=== PATIENT | female | born 1990 | race Native Hawaiian/Other Pacific Islander ===

== ENCOUNTER 2018-12-30 18:28 | Inpatient (IN) | payer OTHER ==
[2018-12-30] MEDS ORDERED: Lactated Ringers 1000 ML Bag* 1,000 ML IV ONE ×2 (18:36→22:17)
[2018-12-30] MEDS ORDERED: Buffered Lidocaine 1% SYRIN* 1 ML/SYRINGE INTRADERM ONE (18:36)
--- NOTE | 2018-12-30 19:07 | HP ---
General Information - Reason for Visit early labor, ctx q 10 min, Pt denies LOF, or VB but reports + FM. - General Information Maternal Age: 28 Grav: 3 Para: 2 SAB: 0 IEA: 0 Estimated Due Date: 01/02/19 Determined By: LMP Gestational Age in Weeks/Days: 39.4 Maternal Blood Type and Rh: O Positive - Results this Serology/RPR Result: Non-Reactive Rubella Result: Immune HBsAg Result: Negative HIV Result: Negative GBS Culture Result: Negative Past Medical History Delivery History: Hx Uncomplicated Vaginal Delivery Past Medical History Comment: cholecystitis with laproscopic cholecystectomy 2014 Pertinent Past Surgical History: See Records - cholecystectomy 2014 Pertinent Family History: See Records - M: HTN; F: prostate CA; relatives: DM - Antepartal Records Antepartal Records: Reviewed, Uncomplicated Review of Systems CV Complaint: No Respiratory: Shortness of Breath: No Gastrointestinal: No Nausea/Vomiting, Normal Bowel Movement Genitourinary: No Dysuria, No Bleeding, No Leaking Fluid Musculoskeletal: Contractions Neurological: No Visual Changes, Headache Movement: Normal Exam Allergies/Adverse Reactions: Allergies No Known Allergies Allergy (Verified 12/30/18 18:52) pending - Measurements Height: 5 ft 2.2 in Weight: 179 lb Weight in lbs: [id number] Body Mass Index (BMI): 32.5 Pre- Weight: 180 lb Weight Gained This : -1 lbs and 0 ozs - Exam Breast: Breast Exam Deferred CVA: No CVA Tenderness Extremities: No Edema Heart: Normal Rhythm/Heart Sounds HEENT: No Significant Findings Lungs: Clear Bilaterally Rectal: Rectal Exam Deferred Reflexes: DTR 2+ Thyroid: No Thyromegaly - Abdominal Exam Abdomen Exam: Fundal Height Consistent with Dates - Ultrasound/Biophysical Profile Ultrasound Status: Not Done Targeted Exam Findings See L&D Outpatient Visit Provider Note for Findings: N/A Estimated Weight: 7lbs 10oz Cervical Exam: 4cm Effacement: 90% Station: -1 Presenting Part: Vertex Membrane Status: Intact Bleeding/Discharge: None EFM Findings - External Monitor Findings Baseline Heart Rate: 135 External Monitor Findings: Accelerations Present, No Pattern of Variable or Late Decelerations, Variability Moderate, Baseline Stable Contractions: Regular, Moderate, 45-90 Seconds Contraction Frequency: 1-3min Assessment/Plan - Assessment 28 y.o. active labor, Cat I NST - Plan Plan: Admit - Anticipate Vaginal Delivery - Date/Time of Admission Date of Admission: 12/30/18 Time of Admission: 19:00
[2018-12-30 21:05] LABS: Urine Benzodiazepine Screen None Detected (None Detect); Urine Opiates Screen None Detected (None Detect)
[2018-12-30] MEDS ORDERED: OBEPIDURAL* 250 ML EPIDURAL ONE (21:40)
[2018-12-30 21:41] LABS: ABS Basophils 0.1 10^3/ul (0-0.2); ABS Eosinophils 0.2 10^3/ul (0-0.6); ABS Lymphocytes 2.9 10^3/ul (1.0-4.8); ABS Monocytes 0.5 10^3/ul (0-0.8); ABS Neutrophils 7.4 10^3/ul (1.5-7.7); Eosinophil % 1.7 %; Hematocrit 40 % (35-47); Hemoglobin 13.6 g/dL (12.0-16.0); Mean Corpuscular HGB Conc 34 g/dL (31-36); Mean Corpuscular Hemoglobin 27 pg (27-31); Mean Corpuscular Volume 79 fL (80-97); Mean Platelet Volume 9.1 fL (7.4-10.4); Platelet Count 220 10^3/uL (150-450); Red Cell Distribution Width 16 % (10-15)
[2018-12-30] MEDS ORDERED: Bupivacaine 0.25% SDV PF* 10 ML VIAL INJ ONE (21:52)
--- NOTE | 2018-12-30 21:54 | PN ---
Progress Note - Progress Note Date of Service: 12/30/18 SOAP: Subjective: Pt reports increasing pain, requests epidural. Objective: BP:133/80, P:70, R:18, T:97.9, cervix: 7/100/-1, FHR: 135bmpm, + accels, -decels, moderate variability, ctxc q 2-3min Laboratory Tests 12/30/18 21:30 WBC 11.0 H Hgb 13.6 Hct 40 Plt Count 220 Assessment: 28 y.o. , 39w4d EGA, active labor, FHR Cat I Plan: 1) Anesthesia consult 2) Position changes for descent 3) Reevaluate PRN
[2018-12-30] MEDS ORDERED: Phenylephrine 40 MCG/ML SYRINGE IV PUSH PRN (22:17)
[2018-12-30] MEDS ORDERED: Famotidine TAB* 20 MG PO PRN (22:17)
[2018-12-30] MEDS ORDERED: EPHEDrine (Pressors)* 50 MG/ML VIAL IV PUSH PRN (22:17)
[2018-12-30] MEDS ORDERED: Sodium Citrate/Citric Acid* 15 ML UDC PO PRN (22:17)
[2018-12-30] MEDS: Lactated Ringers 1000 ML Bag* 1,000 ML IV SCH ×2 (22:26→23:01)
[2018-12-30] MEDS ORDERED: Lactated Ringers 1000 ML Bag* 1,000 ML IV SCH (23:00)
[2018-12-30] MEDS ORDERED: OBEPIDURAL* 250 ML EPIDURAL SCH (23:00)
[2018-12-31] MEDS ORDERED: Acetaminophen TAB* 325 MG PO PRN (00:32)
[2018-12-31] MEDS ORDERED: Dibucaine 1% 28.35 GM TUBE PR PRN (00:32)
[2018-12-31] MEDS ORDERED: Witch Hazel PAD* JAR TOPICAL PRN (00:32)
[2018-12-31] MEDS ORDERED: Glycerin ADULT SUPP PR PRN (00:32)
--- NOTE | 2018-12-31 00:38 | PROCNOTE ---
[facility] OB: Delivery Note - Delivery A Date of : 12/31/18 Time of : 00:18 Sex: Female Score 1 Minute: 8 Score 5 Minutes: 9 Gestational Age in Weeks and Days at Delivery: 39 Weeks and 5 Days Delivery Method: Spontaneous Vaginal Labor: Spontaneous Amniotic Fluid: Clear Estimated Blood Loss: 150 Anesthesia/Analgesia: CEI for Labor Delivered By: Vilma Wallace - Nursery Level of Nursery: Regular/Bedside - Perineum Perineal Injury: None/Intact Perineal Repair: None - Events Delivery Events of Note Comment: nuchal cord x 1 easily reduced on perineum
[2018-12-31] MEDS ORDERED: Lactated Ringers 1000 ML Bag* 1,000 ML IV SCH (01:00)
[2018-12-31] MEDS: Ibuprofen TAB* 600 MG PO PRN ×3 (01:08→20:30)
[2018-12-31] MEDS: Docusate CAP* 100 MG PO SCH ×3 (08:01→20:54)
[2018-12-31] MEDS ORDERED: Simethicone TAB* 80 MG TAB.CHEW PO SCH (08:30)
[2019-01-01] MEDS: Ibuprofen TAB* 600 MG PO PRN ×3 (08:19→21:00)
[2019-01-01] MEDS: Docusate CAP* 100 MG PO SCH ×3 (08:22→21:00)
[2019-01-01] MEDS ORDERED: Ferrous Gluconate TAB* 324 MG TAB PO SCH (09:00)
[2019-01-01 10:17] LABS: ABS Basophils 0.1 10^3/ul (0-0.2); ABS Eosinophils 0.3 10^3/ul (0-0.6); ABS Lymphocytes 2.7 10^3/ul (1.0-4.8); ABS Monocytes 0.3 10^3/ul (0-0.8); ABS Neutrophils 7.2 10^3/ul (1.5-7.7); Hematocrit 33 % (35-47); Hemoglobin 10.7 g/dL (12.0-16.0); Lymphocyte % 25.8 %; Mean Corpuscular HGB Conc 33 g/dL (31-36); Mean Corpuscular Hemoglobin 27 pg (27-31); Mean Corpuscular Volume 81 fL (80-97); Mean Platelet Volume 8.8 fL (7.4-10.4); Platelet Count 200 10^3/uL (150-450); Red Blood Count 4.04 10^6 /uL (3.70-4.87); Red Cell Distribution Width 16 % (10-15); White Blood Count 10.6 10^3/uL (3.5-10.8)
[2019-01-01 20:20] VITALS: BP 116/56
[2019-01-02] MEDS: Ibuprofen TAB* 600 MG PO PRN ×2 (03:41→11:19)
[2019-01-02] MEDS: Docusate CAP* 100 MG PO SCH (11:19)
== END 2019-01-02 11:42 | disposition home or self-care (01) | DRG 560 ==
LOC: MCHOBOUT 18:28 → MCHOB 18:35
PROVIDERS: ADMIT Midwife; ATTEND Midwife
PROC: 10E0XZZ Delivery of Products of Conception, External Approach (ICD-10-PCS; principal; 2018-12-31)
PROC: 10907ZC Drainage of Amniotic Fluid, Therapeutic from Products of Conception, Via Natural or Artificial Opening (ICD-10-PCS; 2018-12-31)
DX: O69.81X0 Labor and delivery complicated by cord around neck, without compression, not applicable or unspecified (principal); Z37.0 Single live birth; Z3A.39 39 weeks gestation of pregnancy
CPT/HCPCS: 36415; 80307; 85025; 86850; 86900; 86901; A9270-GY; J3490